=== PATIENT | female | born 1995 | race Two or more races ===

== ENCOUNTER 2020-01-20 10:30 | Emergency (ER) | payer OTHER ==
[~2020-01-20] VITALS: Ht 162.6 cm; Wt 67.1 kg
[2020-01-20] MEDS ORDERED: PROTONIX40 MG PO (19:57)
[2020-01-20] MEDS ORDERED: KETO10TA2 PO (19:57)
[2020-01-20] MEDS ORDERED: LEVSIN/SL0.125 MG SL (19:57)
== END 2020-01-20 20:31 | disposition home or self-care (01) ==
LOC: ER 10:30
DX: K52.89 Other specified noninfective gastroenteritis and colitis (principal); K80.80 Other cholelithiasis without obstruction

== ENCOUNTER 2020-01-21 07:57 | Inpatient (IN) | payer OTHER ==
[~2020-01-21] VITALS: Ht 162.6 cm; Wt 66.7 kg
[~2020-01-21 07:57] MED LIST: KETO10TA2 PO; LEVSIN/SL0.125 MG SL; PROTONIX40 MG PO
[2020-01-23] MEDS ORDERED: PROTONIX40 MG PO ×2 (10:11)
[2020-01-23] MEDS ORDERED: PEPCID20 MG PO ×2 (10:11)
[2020-01-23] MEDS ORDERED: MIRALAX17 GM PO ×2 (10:11)
[2020-01-23] MEDS ORDERED: PERCOCET 5-3251 EACH PO ×2 (10:11)
== END 2020-01-23 13:27 | disposition home or self-care (01) | DRG 419 ==
LOC: ER 07:57 → SEC-K 08:37 → O/R 15:21 → SURH 16:15
PROVIDERS: ADMIT Surgery; ATTEND Surgery
PROC: 0FT44ZZ Resection of Gallbladder, Percutaneous Endoscopic Approach (ICD-10-PCS; principal; 2020-01-21 08:00)
DX: K80.00 Calculus of gallbladder with acute cholecystitis without obstruction (principal); Z20.828 Contact with and (suspected) exposure to other viral communicable diseases

== ENCOUNTER 2020-04-03 06:18 | Outpatient (CLI) | payer OTHER ==
[~2020-04-03 06:18] MED LIST changes: +MIRALAX17 GM PO; +PEPCID20 MG PO; +PERCOCET 5-3251 EACH PO
== END 2020-04-03 06:22 | disposition home or self-care (01) ==
LOC: LAB 06:18
PROVIDERS: ATTEND Colon & Rectal Surgery
DX: K29.00 Acute gastritis without bleeding (principal); K21.9 Gastro-esophageal reflux disease without esophagitis; K92.1 Melena

== ENCOUNTER 2020-04-13 06:20 | Day surgery (SDC) | payer OTHER | END 2020-04-13 10:40 | disposition home or self-care (01) | LOC: AMB-ENDOS 06:20 → ADM 05-04 12:00 | PROVIDERS: ATTEND Colon & Rectal Surgery | DX: D13.1 Benign neoplasm of stomach (principal); K44.9 Diaphragmatic hernia without obstruction or gangrene; Z20.822 Contact with and (suspected) exposure to COVID-19; K64.0 First degree hemorrhoids ==

== ENCOUNTER 2020-11-12 08:00 | Outpatient (CLI) | payer OTHER | END 2020-11-12 08:30 | disposition home or self-care (01) | LOC: PPH VACUNA 08:00 | PROVIDERS: ATTEND Emergency Medicine Pediatric Emergency Medicine | DX: Z23 Encounter for immunization (principal) ==

== ENCOUNTER → 2021-02-07 13:23 | Outpatient (CLI) | payer OTHER | END | disposition home or self-care (01) | LOC: LAB 13:23 | PROVIDERS: ATTEND Anesthesiology | DX: D68.9 Coagulation defect, unspecified (principal); R53.82 Chronic fatigue, unspecified ==